=== PATIENT | male | born 1940 | race Two or more races ===

== ENCOUNTER 2021-02-27 03:49 | Emergency (ER) | payer OTHER ==
[~2021-02-27] VITALS: Ht 165.1 cm; Wt 71.0 kg
[2021-02-27] MEDS ORDERED: LIDOCAINE 5% PATCH TOP SCH (05:00)
[2021-02-27] MEDS ORDERED: DIAZEPAM 5 MG/ML 2ML CPJ IM ONE (05:00)
[2021-02-27] MEDS ORDERED: LIDO700A30 TP (06:04)
[2021-02-27] MEDS ORDERED: CYCL5TAB MT (06:04)
[2021-02-27] MEDS ORDERED: IBUP-2029 MT (06:04)
[2021-02-27] MEDS ORDERED: KETOROLAC 60MG/2ML VIAL IM ONE (06:15)
[2021-02-27] MEDS ORDERED: KETOROLAC 30MG/ML VIAL IM SCH (06:15)
[2021-02-27 06:29] VITALS: BP 127/65
== END 2021-02-27 06:45 | disposition home or self-care (01) ==
LOC: ER 03:49
DX: M54.2 Cervicalgia (principal); I10 Essential (primary) hypertension; N40.0 Benign prostatic hyperplasia without lower urinary tract symptoms; Z98.890 Other specified postprocedural states; Z86.718 Personal history of other venous thrombosis and embolism; Z79.01 Long term (current) use of anticoagulants; Z87.891 Personal history of nicotine dependence
CPT/HCPCS: 96372; 99284; J1885; J3360